=== PATIENT | male | born 1995 | race African-American/Black ===

== ENCOUNTER 2021-12-02 13:09 | Emergency (ER) | payer BC, SELFPAY ==
[2021-12-02 13:21] VITALS: BP 156/87; PULSE 68; RESP 16; TEMP 36.8; O2SAT 100
--- NOTE | 2021-12-02 13:35 | ED.MALEGU ---
HPI - Male Genitourinary General Chief complaint: Urogenital-Male Stated complaint: Urinary pain Time Seen by Provider: 12/02/21 13:35 Source: patient and RN notes reviewed Mode of arrival: ambulatory Limitations: no limitations History of Present Illness HPI Narrative: 25-year-old male presented for complaint of genital itching, first noticed today. States I think it is a yeast infection. He denies dysuria, penile discharge, hematuria, nausea, vomiting, fever or chills. Denies concern for STD at this time, denies known exposure. Related Data Allergies Allergy/AdvReac Type Severity Reaction Status Date / Time No Known Allergies Allergy Unknown Verified 12/18/16 15:30 Review of Systems Review of Systems: CONSTITUTIONAL: Denies body aches, fever, chills, or sweats. CARDIOVASCULAR: Denies chest pain, palpitations, or edema. RESPIRATORY: Denies cough or dyspnea. GASTROINTESTINAL: Denies abdominal pain, nausea, vomiting, or diarrhea. GENITOURINARY: Endorses penile itching; Denies dysuria, frequency, urgency, hematuria, flank pain SKIN: Denies rash, itching, or wounds. MUSCULOSKELETAL: Denies back pain or myalgia. [facility] Family History Family History Sibling Family history of epilepsy Family history of attention deficit hyperactivity disorder (ADHD) Family history of seizure disorder Father Hypertension Mother Asthma Other Diabetes mellitus Social History Social History Second hand tobacco smoke exposure: No Comments At time of signature, I have reviewed and agree with nursing past medical, surgical, social and family history unless otherwise noted. Please see nursing chart for further information. There is no relevant family history pertinent to the presenting complaint Exam Narrative: GENERAL: Well-appearing HEAD: Normocephalic EYES: EOMI. ENT: Mucous membranes pink and moist. NECK: Normal AROM. Supple. CHEST: No respiratory distress. Clear to auscultation. HEART: Regular rate and rhythm. ABDOMEN: Soft, nontender, nondistended, normal active bowel sounds. No CVA tenderness : Glans is not erythematous, excoriated or edematous; no active drainage/discharge, no lesions noted. MUSCULOSKELETAL: No bony tenderness. SKIN: Warm, dry, no rash. NEURO: No focal deficits. Alert and oriented x3. Gait steady. PSYCH: Normal affect. No signs of depression or anxiety. Course Course Emergency Course: Patient is aware of diagnosis, understands and agrees to treatment plan. Anticipatory guidance given. Patient agrees to follow-up as directed and is aware of reasons to seek care at the emergency department. Portions of this record may have been created with voice recognition software Level of Care: Express Care Visit Vital Signs Vital signs: Vital Signs Temperature 98.2 F 12/02/21 13:21 Pulse Rate 68 12/02/21 13:21 Respiratory Rate 16 12/02/21 13:21 Blood Pressure 156/87 H 12/02/21 13:21 Pulse Oximetry 100 12/02/21 13:21 Temperature 98.2 F 12/02/21 13:21 Pulse Rate 68 12/02/21 13:21 Respiratory Rate 16 12/02/21 13:21 Blood Pressure 156/87 H 12/02/21 13:21 Pulse Oximetry 100 12/02/21 13:21 Reviewed MDM - Male Genitourinary MDM Narrative Medical decision making narrative: Pt stated last sexual contact was unprotected about 1 month ago. Urine specimen collected for GC, chlamydia, trich. Informed Pt will be contacted w/ results when they become available if they are positive. Discussed with patient that it takes up to 7 days for results of cultures to be released and explained that we may treat empirically at this time. Agreeable to treatment at this time. I have instructed the patient to return to the ER at any time if there are any new or worsening symptoms. The patient expressed understanding of and agreement with this plan. Differential Diagno
[2021-12-02] MEDS: cefTRIAXone 500 MG, LIDOCAINE HCL 1% LOCAL INJ 1 ML IM (13:44)
== END 2021-12-02 14:04 | disposition home or self-care (01) ==
PROVIDERS: Emergency Provider Nurse Practitioner Family
DX: N48.89 Other specified disorders of penis (principal); I10 Essential (primary) hypertension
CPT/HCPCS: 81003; 87491; 87591; 87661; 96372; 99203; G0463; J0696